=== PATIENT | male | born 1975 | race Two or more races ===

== ENCOUNTER 2018-07-21 20:19 | Emergency (ER) | payer MEDICAID ==
[~2018-07-21] VITALS: Ht 162.6 cm; Wt 82.0 kg
[2018-07-21] MEDS ORDERED: CHLORDIAZEPOXIDE 25MG CAPSULE PO ONE (23:15)
[2018-07-21] MEDS ORDERED: LORAZEPAM 0.5MG TABLET PO ONE (23:15)
[2018-07-21] MEDS ORDERED: ONDANSETRON 4MG ODT PO ONE (23:15)
[2018-07-22 00:03] LABS: BASOPHILS % 0.7 % (0.0-2.0); EOSINOPHILS % 0.4 % (0.0-5.0); HEMOGLOBIN. 14.6 g/dL (14.0-18.0); LYMPHOCYTES % 26.2 % (20.0-50.0); MEAN CORPUSCULAR VOLUME 82.3 fL (80.0-94.0); MONOCYTES % 6.9 % (2.0-8.0); NEUTROPHILS % 65.8 % (40.0-76.0); PLATELET 169 x1000/uL (130-400); RED BLOOD CELL COUNT 5.22 mill/uL (4.7-6.1); RED CELL DISTRIBUTION WIDTH 16.5 % (11.6-14.6)
[2018-07-22 00:08] LABS: CHLORIDE 101 mEq/L (98-107)
[2018-07-22 00:42] VITALS: BP 119/75
== END 2018-07-22 00:44 | disposition home or self-care (01) ==
LOC: ER 20:19
DX: F10.10 Alcohol abuse, uncomplicated (principal); G47.00 Insomnia, unspecified; Y90.9 Presence of alcohol in blood, level not specified
CPT/HCPCS: 36415; 80053; 85025; 99283; Q0162